=== PATIENT | female | born 1980 | race Two or more races ===

== ENCOUNTER 2025-05-26 12:24 | Emergency (ER) | payer MEDICAID, SELFPAY ==
--- NOTE | 2025-05-26 | XR_ITS ---
Examination: PA lateral chest 2 views TECHNIQUE: Upright PA lateral chest 2 views Date and time: May 26, 2025 1409 hours INDICATIONS: Shortness of breath beginning 2 weeks ago. FINDINGS: Normal heart size. The lungs are clear. The osseous structures are intact. IMPRESSION: No active disease.
--- NOTE | 2025-05-26 12:30 | EKG_ITS ---
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
[2025-05-26 12:38] VITALS: BP 153/89; PULSE 84; RESP 17; TEMP 36.7; O2SAT 98
--- NOTE | 2025-05-26 15:10 | PD.EDRME ---
Rapid Medical Screening Exam [facility] Arrival date/time: 05/26/25 12:24 CC: Chest pain numbness and tingling in her fingers neck pain and headache HPI ongoing for 2 weeks but worse in the last 12 hours. Patient denies shortness of breath or difficulty breathing. Patient is very anxious. Chief Complaint: Shortness of Breath/Dyspnea Time Seen by Provider: 05/26/25 13:06 Vital signs: Vital Signs Temperature 98.0 F 05/26/25 12:38 Pulse Rate 84 05/26/25 12:38 Respiratory Rate 17 05/26/25 12:38 Blood Pressure 153/89 H 05/26/25 12:38 Pulse Oximetry (%) 98 05/26/25 12:38 Oxygen Delivery Method Room Air 05/26/25 12:38
[2025-05-26 15:38] LABS: Basophils # (Auto) 0.0 Thou/mm3 (0.0-0.2); Basophils % (Auto) 1 % (0-2.5); Eosinophils # (Auto) 0.1 Thou/mm3 (0.0-0.5); Eosinophils % (Auto) 2 % (0-10); Hematocrit 38.9 % (36.0-46.0); Hemoglobin 13.4 g/dL (12.0-16.0); Immature Granulocytes Auto 0.02 Thou/mm3 (0.00-0.00); Lymphocytes # (Auto) 1.6 Thou/mm3 (1.0-4.8); Lymphocytes % (Auto) 23 % (10-50); Mean Corpuscular HGB Conc 34.4 g/dl (31.0-37.0); Mean Corpuscular Hemoglobin 31.4 pg (25.0-35.0); Mean Corpuscular Volume 91 fL (80-100); Monocytes # (Auto) 0.5 Thou/mm3 (0.0-0.8); Monocytes % (Auto) 7 % (0-12); Neutrophils # (Auto) 4.7 Thou/mm3 (1.8-7.7); Neutrophils % (Auto) 68 % (37-80); Nucleated Red Blood Cell # 0.00 Thou/mm3 (0.00-0.00); Nucleated Red Blood Cell % 0 /100 WBC (0); Platelet Count 197 Thou/mm3 (140-440); RDW Standard Deviation 42.2 fL (36.4-46.3); Red Blood Count 4.27 Miln/mm3 (4.00-5.20); White Blood Count 7.0 Thou/mm3 (3.6-11.0)
[2025-05-26 15:41] LABS: Bilirubin,Urine Negative (Negative); Blood,Urine Negative (Negative); Clarity,Urine Clear (Clear/Hazy); Collection Type, Urine Clean Catch; Color,Urine Lt-Yellow (Lt Yel-Yel); Glucose, Urine 1+ (Negative); Ketones,Urine Negative (Negative); Leukocyte Esterase,Urine Positive (Negative); Nitrite,Urine Negative (Negative); PH,Urine 6.0 (5.0-7.0); Protein,Urine Negative (Neg - Trace); RBC,Urine 5 /hpf (0-3); Specific Gravity,Urine 1.013 (1.001-1.035); Squamous Epithelial Cell,Urine 2 /hpf (0-5); Urobilinogen,Urine Negative mg/dL (0.0-1.0); WBC,Urine 5 /hpf (0-5)
[2025-05-26 15:45] LABS: INR 1.0 (0.9-1.3); Partial Thromboplastin Time 23.2 Seconds (22.0-36.0); Prothrombin Time 10.6 Seconds (9.0-12.2)
[2025-05-26 16:04] LABS: Amphetamine/Methamp Scrn,U Negative (Negative); Barbiturate Screen,Urine Negative (Negative); Benzodiazepines Screen,Urine Negative (Negative); Benzoylecgonine Screen, Ur Negative (Negative); Fentanyl Screen,Urine Negative (Negative); Opiate Screen,Urine Negative (Negative); THC Screen,Urine Negative (Negative)
[2025-05-26 16:05] LABS: B-Type Natriuretic Peptide 43 pg/mL (0-100)
[2025-05-26 17:54] VITALS: BP 148/82; PULSE 76; RESP 17; TEMP 37.1; O2SAT 98
[2025-05-26 17:57] LABS: Alanine Aminotransferase 64 U/L (10-49); Albumin, Serum 4.5 gm/dL (3.5-5.0); Albumin/Globulin Ratio 2.0 (1.2-2.2); Alkaline Phosphatase 104 U/L (46-116); Anion Gap 9 (7-16); Aspartate Amino Transferase 60 U/L (0-34); BUN/Creatinine Ratio 10 Ratio (12-20); Bilirubin,Total 1.4 mg/dL (0.3-1.2); Blood Urea Nitrogen 8 mg/dL (9-23); Calcium 9.9 mg/dL (8.3-10.6); Calcium (Corrected) 9.9 mg/dL (8.5-10.1); Carbon Dioxide 25.0 mMol/L (20.0-31.0); Chloride 105 mMol/L (98-107); Creatinine (Component) 0.8 mg/dL (0.6-1.3); Globulin 2.3 gm/dL (2.3-3.5); Glucose 77 mg/dL (74-106); LDH (Lactate Dehydrogenase) 211 U/L (120-246); Magnesium 2.1 mg/dL (1.6-2.6); Osmolality,Calculated 274 (275-295); Potassium 4.2 mMol/L (3.4-5.1); Sodium 139 mMol/L (136-145); Total Protein 6.8 gm/dL (5.7-8.2); Troponin I < 0.002 ng/mL (0.0-0.045); eGFR > 60 See Note
--- NOTE | 2025-05-26 18:47 | EDNOTE_ITS ---
ED SOB =RME/HPI General Chief Complaint: Shortness of Breath/Dyspnea Stated Complaint: CHEST PAIN, SOB, NECK PAIN, CRAMPING TO HANDS, Time Seen by Provider: 05/26/25 13:06 Arrival date/time: 05/26/25 12:24 RME / HPI RME / HPI Narrative: 44-year-old female patient with no significant past medical history, came in for evaluation regarding chest pain numbness and tingling in her fingers neck pain and headache HPI ongoing for 2 weeks but worse in the last 12 hours. Patient denies shortness of breath or difficulty breathing. Patient is very anxious. Patient denies any fever denies any other complaints no medication was taken prior to arrival. Related Data Previous Rx's ?Medication ?Instructions ?Recorded ibuprofen 800 mg tablet 800 mg PO TID PRN pain #20 t abs 03/23/19 ibuprofen 800 mg tablet (IBU) 800 mg PO TID PRN pain # 30 tabs 11/03/19 medroxyprogesterone 10 mg tablet 10 mg PO QDAY #7 tabs 03/21/24 hydroxyzine HCl 50 mg tablet 50 mg PO TID PRN anxiety #30 tabs 05/26/25 Allergies Allergy/AdvReac Type Severity Reaction Status Date / Time No Known Allergies Allergy Verified 05/26/25 12:27 Review of Systems Review of Systems Narrative Review of Systems: Review of system reviewed and within normal limits except mentioned in HPI ED Exam Narrative Physical exam: VITAL SIGNS: Reviewed. GENERAL APPEARANCE: Alert and interactive, follows commands, no acute distress, HEAD AND FACE: Non-traumatic. ENT: PERRL, pink conjunctivitis, eyelid no trauma, Mucous membrane moist. NECK: Supple, nontender, no nuchal rigidity. CHEST: No tenderness, no crepitus, no paradoxical movement, no retractions. LUNGS: Clear, well ventilated, symmetric, no rales, no wheezing, no ronchi, no stridor, good breath sounds bilaterally. HEART: Regular rate, regular rhythm, no murmur, no gallops. ABDOMEN: Soft, positive bowel sounds, nondistended, no guarding, nontender, no rebound, no masses, RECTAL: Deferred. GENITAL: Deferred. NEUROLOGICAL: Gross motor function intact sensory function intact, Appropriate for age. MUSCULOSKELETAL: low back nontender, full range of motion. EXTREMITIES: Nontender, full range of motion. SKIN: Color pink, dry, no rash, no lacerations, no abrasions, no contusions. LYMPHATICS: Deferred. Course Quality Measures none Orders Category Date Time Status EKG (ED ONLY) *Do not use* NOW Care 05/26/25 12:30 Completed EKG (ED Only) Stat Exams 05/26/25 12:30 Draft XR chest 2V Stat Exams 05/26/25 Completed B-Type Natriuretic Peptide Stat Lab 05/26/25 14:46 Completed CBC Stat Lab 05/26/25 14:46 Completed Comprehensive Metabolic Panel Stat Lab 05/26/25 14:46 Completed Drug Screen,Urine Stat Lab 05/26/25 14:46 Completed LDH (Lactate Dehydrogenase) Stat Lab 05/26/25 14:46 Completed Magnesium Stat Lab 05/26/25 14:46 Completed Partial Thromboplastin Time Stat Lab 05/26/25 14:46 Completed Prothrombin Time with INR Stat Lab 05/26/25 14:46 Completed Troponin I Stat Lab 05/26/25 14:46 Completed Urinalysis Stat Lab 05/26/25 14:46 Completed Urine Culture Stat Lab 05/26/25 14:46 Received Vital Signs Vital signs: Vital Signs Temperature 98.0 F 05/26/25 12:38 Pulse Rate 84 05/26/25 12:38 Respiratory Rate 17 05/26/25 12:38 Blood Pressure 153/89 H 05/26/25 12:38 Pulse Oximetry (%) 98 05/26/25 12:38 Oxygen Delivery Method Room Air 05/26/25 12:38 Shortness of Breath / Dyspnea MDM Narrative MDM Narrative:: 44-year-old female patient with no significant past medical history, came in for evaluation regarding chest pain numbness and tingling in her fingers neck pain and headache HPI ongoing for 2 weeks but worse in the last 12 hours. Patient denies shortness of breath or difficulty breathing. Patient is very anxious. Patient denies any fever denies any other complaints no medication was taken prior to arrival. Patient's workup today all came back normal including chest x-ray that came back unremarkable. Troponin is normal. EKG showed normal sinus rhythm, sinus ventricular rate of 76 bpm, no ST segment elevation depression noted. On reevaluation I did not notice any sign of anxiety. Patient verbalized complete resolution of symptoms. However I decided to send her on hydroxyzine. As needed for anxiety Patient data External records reviewed:: None Clinical information provided by:: none Social determinants that could affect healthcare access:: none Patient has the following chronic illnesses:: None How is presenting disease/condition affected by chronic disease/condition?: no chronic disease Evaluation data The following diagnostics were reviewed and interpreted by me:: lab results, radiology exam(s) and EKG tracing(s) Lab and/or radiology exams considered but not ordered:: None Interpretation Summary: None Medications / Prescriptions Medications or Prescriptions considered but not ordered:: None Medication administrations:: None Consultations Consultation(s) initiated? (list below): No Diagnosis Shortness of Breath Differential Diagnosis: other (Anxiety, shortness of breath no chest pain) Most likely diagnosis given after review of the tests above:: anxiety Admission Indicated Admission indicated?: not indicated Admission Request Was there a request for admission?: No Disposition Plan Disposition Plan: Discharge Discharge Attestation Discharge Attestation: The patient and all family members were given an opportunity to ask questions and understood the discharge instructions. Discharge instructions specifically effects, indications for sooner follow up or return to the emergency department, and the expected course of current diagnosis. Patient condition: Stable Discharge Plan Plan Patient Disposition: HOME (Self Care) Discharge Disposition comment: Stable Prescriptions/Referrals Prescriptions/Med Rec: New hydroxyzine HCl 50 mg tablet 50 mg PO TID PRN (Reason: anxiety) Qty: 30 0RF No Action ibuprofen 800 mg tablet 800 mg PO TID PRN (Reason: pain) Qty: 20 0RF ibuprofen [IBU] 800 mg tablet 800 mg PO TID PRN (Reason: pain) Qty: 30 0RF medroxyprogesterone 10 mg tablet 10 mg PO QDAY Qty: 7 0RF Referrals: No Primary/Family,Physician [Primary Care Provider] - In 1 week Problem List Clinical Impression: Anxiety Patient/Caregiver Discharge Instructions Discharge Activity: activity as tolerated Education Materials: ED Anxiety Reaction Additional Instructions: Thank you for the opportunity for serving you today. You are stable for discharged . You are advised to: Follow-up with your PCP in 1 to 2 days Return to ED for worsening of symptoms Increase oral fluids Take medication as prescribed Print Language: Kyrgyz Stand Alone Forms: Barbara Award Info., Patient Portal Info Letter
== END 2025-05-26 19:31 | disposition home or self-care (01) ==
PROVIDERS: Registered Nurse General Practice; Emergency Provider Emergency Medicine
DX: F41.9 Anxiety disorder, unspecified (principal); R07.9 Chest pain, unspecified
CPT/HCPCS: 36415; 71046; 80053; 80307; 81001; 83615; 83735; 83880; 84484; 85025; 85610; 85730; 87086; 93005; 99283